=== PATIENT | male | born 1995 | race American Indian/Alaskan Native ===

== ENCOUNTER 2021-10-12 07:29 | Emergency (ER) | payer SELFPAY ==
[2021-10-12 07:49] VITALS: BP 147/94
--- NOTE | 2021-10-12 08:28 | Emergency Department Report ---
ED ENT HPI - General Chief complaint: Dental/Oral Stated complaint: WISDOM TOOTH INFECTED Time Seen by Provider: 10/12/21 08:00 Source: patient Mode of arrival: Ambulatory Limitations: No Limitations - History of Present Illness Initial comments: 26 year old male presents to ED with complaints of pain and swelling to wisdom tooth in most posterior aspect of right lower jaw. Onset was 2 days ago. He reports that he has known bad tooth to that area but currently does not have a dentist. He states in past 2 days, it has become painful and swollen. He reports no difficulty opening his mouth, drooling, difficulty breathing or difficulty swallowing or any facial redness. MD complaint: tooth pain -: Gradual, days(s) (2) - Related Data Previous Rx's Medication Instructions Recorded Last Taken Type Ibuprofen [Motrin 800 MG tab] 800 mg PO Q8HR PRN #15 tablet 07/12/20 Unknown Rx methOCARBAMOL [Robaxin TAB] 750 - 1,500 mg PO Q8H PRN #20 07/12/20 Unknown Rx tablet Amoxicillin [Trimox CAP] 500 mg PO Q8H #30 capsule 10/12/21 Unknown Rx Ketorolac [Toradol] 10 mg PO Q6H PRN #20 tablet 10/12/21 Unknown Rx Allergies Allergy/AdvReac Type Severity Reaction Status Date / Time No Known Allergies Allergy Unverified 07/12/20 12:22 ED Dental HPI - General Chief complaint: Dental/Oral Stated complaint: WISDOM TOOTH INFECTED Time Seen by Provider: 10/12/21 08:00 Source: patient Mode of arrival: Ambulatory Limitations: No Limitations - Related Data Previous Rx's Medication Instructions Recorded Last Taken Type Ibuprofen [Motrin 800 MG tab] 800 mg PO Q8HR PRN #15 tablet 07/12/20 Unknown Rx methOCARBAMOL [Robaxin TAB] 750 - 1,500 mg PO Q8H PRN #20 07/12/20 Unknown Rx tablet Amoxicillin [Trimox CAP] 500 mg PO Q8H #30 capsule 10/12/21 Unknown Rx Ketorolac [Toradol] 10 mg PO Q6H PRN #20 tablet 10/12/21 Unknown Rx Allergies Allergy/AdvReac Type Severity Reaction Status Date / Time No Known Allergies Allergy Unverified 07/12/20 12:22 ED Review of Systems ROS: Stated complaint: WISDOM TOOTH INFECTED Other details as noted in HPI Comment: All other systems reviewed and negative Constitutional: denies: chills, fever ENT: dental pain. denies: ear pain, throat pain, congestion Respiratory: denies: cough, shortness of breath, SOB with exertion, SOB at rest, wheezing Cardiovascular: denies: chest pain, palpitations, dyspnea on exertion, edema, syncope, paroxysmal nocturnal dyspnea Gastrointestinal: denies: abdominal pain, nausea, diarrhea, constipation, hematemesis, hematochezia Genitourinary: denies: urgency, dysuria, frequency, hematuria, discharge, testicular pain, testicular mass Musculoskeletal: denies: back pain, joint swelling, arthralgia Skin: denies: rash, lesions, change in color, change in hair/nails, pruritus Neurological: denies: headache, weakness, numbness, paresthesias, confusion, abnormal gait, vertigo Psychiatric: denies: anxiety, depression, auditory hallucinations, visual hallucinations, homicidal thoughts, suicidal thoughts Hematological/Lymphatic: denies: easy bleeding, easy bruising, swollen glands ED Past Medical Hx - Past Medical History Previous Medical History?: No - Surgical History Past Surgical History?: No - Social History Smoking Status: Never Smoker - Medications Home Medications: Home Medications Medication Instructions Recorded Confirmed Last Taken Type Ibuprofen [Motrin 800 MG tab] 800 mg PO Q8HR PRN #15 tablet 07/12/20 Unknown Rx methOCARBAMOL [Robaxin TAB] 750 - 1,500 mg PO Q8H PRN #20 07/12/20 Unknown Rx tablet Amoxicillin [Trimox CAP] 500 mg PO Q8H #30 capsule 10/12/21 Unknown Rx Ketorolac [Toradol] 10 mg PO Q6H PRN #20 tablet 10/12/21 Unknown Rx ED Physical Exam - General Limitations: No Limitations General appearance: alert, in no apparent distress - Head Head exam: Present: atraumatic, normocephalic, normal inspection - Eye Eye exam: Present: normal appearance, PERRL, EOMI Pupils: Present: normal accommodation - ENT ENT exam: Present: normal exam, mucous membranes moist, TM's normal bilaterally - Expanded ENT Exam Expanded 1 - Dental Tenderness (severe), Other (severe decay with impaction) Throat exam: Positive: normal inspection, tonsillar exudate - Neck Neck exam: Present: normal inspection, full ROM, lymphadenopathy (anterior cervical adenopathy ). Absent: tenderness, meningismus - Respiratory Respiratory exam: Present: normal lung sounds bilaterally. Absent: respiratory distress, wheezes, rales, rhonchi - Cardiovascular Cardiovascular Exam: Present: regular rate, normal rhythm, normal heart sounds - Neurological Exam Neurological exam: Present: alert, oriented X3, CN II-XII intact, normal gait - Psychiatric Psychiatric exam: Present: normal affect, normal mood - Skin Skin exam: Present: intact ED Course Vital Signs 10/12/21 07:46 Temperature 98.8 F Pulse Rate 69 Blood Pressure 147/94 Critical care attestation.: If time is entered above; I have spent that time in minutes in the direct care of this critically ill patient, excluding procedure time. ED Disposition Clinical Impression: Dental impaction, Pain due to dental caries Disposition: HOME / SELF CARE / HOMELESS Is pt being admited?: No Does the pt Need Aspirin: No Condition: Stable Instructions: Impacted Molar Additional Instructions: Take the amoxicillin and the Toradol as prescribed to help with pain. Continue to do the warm salt water rinses. Follow-up with a dentist, listed on the dental list given to you at discharge. Return to the ER if any symptoms worsens or changes in any way. Prescriptions: Ketorolac [Toradol] 10 mg PO Q6H PRN #20 tablet PRN Reason: Pain Amoxicillin [Trimox CAP] 500 mg PO Q8H #30 capsule Referrals: PRIMARY CARE, [Primary Care Provider] - 3-5 Days Forms: Work/School Release Form(ED) Time of Disposition: 08:28
== END 2021-10-12 08:59 | disposition home or self-care (01) ==
LOC: ED 07:29
DX: K01.1 Impacted teeth (principal); K02.9 Dental caries, unspecified
CPT/HCPCS: 99282

== ENCOUNTER 2022-05-25 10:32 | Emergency (ER) | payer SELFPAY ==
[2022-05-25] MEDS ORDERED: IBUPROFEN 600 MG TAB PO ONE (12:21)
[2022-05-25] MEDS ORDERED: HYDROcodone/ACETAMINOPHEN 5-325 MG TAB PO ONE (12:21)
--- NOTE | 2022-05-25 12:24 | Emergency Department Report ---
ED Extremity Problem HPI - General Chief complaint: Extremity Injury, Lower Stated complaint: SPRAIN ANKLE Time Seen by Provider: 05/25/22 11:32 Source: patient Mode of arrival: Ambulatory Limitations: No Limitations - History of Present Illness Initial comments: 18-year-old male with no significant past medical history reports to the ER with right ankle and right foot injury after playing basketball about 2 days ago. Patient reports pain is 8 out of 10 with ambulation. Patient reports swelling and tenderness. Patient Reports taking nothing for his pain. Patient reports no other acute signs and symptoms at this moment. Patient in no acute distress at this time. - Related Data Previous Rx's Medication Instructions Recorded Last Taken Type Ibuprofen [Motrin 800 MG tab] 800 mg PO Q8HR PRN #15 tablet 07/12/20 Unknown Rx methOCARBAMOL [Robaxin TAB] 750 - 1,500 mg PO Q8H PRN #20 07/12/20 Unknown Rx tablet Amoxicillin [Trimox CAP] 500 mg PO Q8H #30 capsule 10/12/21 Unknown Rx Ketorolac [Toradol] 10 mg PO Q6H PRN #20 tablet 10/12/21 Unknown Rx Ibuprofen [Motrin] 600 mg PO Q8H PRN 7 Days #21 tablet 05/25/22 Unknown Rx Allergies Allergy/AdvReac Type Severity Reaction Status Date / Time No Known Allergies Allergy Verified 05/25/22 11:10 ED Review of Systems ROS: Stated complaint: SPRAIN ANKLE Other details as noted in HPI ED Past Medical Hx - Social History Smoking Status: Never Smoker - Medications Home Medications: Home Medications Medication Instructions Recorded Confirmed Last Taken Type Ibuprofen [Motrin 800 MG tab] 800 mg PO Q8HR PRN #15 tablet 07/12/20 Unknown Rx methOCARBAMOL [Robaxin TAB] 750 - 1,500 mg PO Q8H PRN #20 07/12/20 Unknown Rx tablet Amoxicillin [Trimox CAP] 500 mg PO Q8H #30 capsule 10/12/21 Unknown Rx Ketorolac [Toradol] 10 mg PO Q6H PRN #20 tablet 10/12/21 Unknown Rx Ibuprofen [Motrin] 600 mg PO Q8H PRN 7 Days #21 tablet 05/25/22 Unknown Rx ED Physical Exam - General Limitations: No Limitations ED Course Vital Signs 05/25/22 05/25/22 11:07 14:19 Temperature 98.5 F 97.5 F L Pulse Rate 69 67 Respiratory 18 16 Rate Blood Pressure 141/78 137/86 [Left] O2 Sat by Pulse 98 100 Oximetry ED Medical Decision Making - Radiology Data Radiology results: report reviewed, image reviewed [address] [address] XRay Report Signed Patient: LUCIUS MCLEAN MR#: [id number] : 1995 Acct:[id number] Age/Sex: 26 / M ADM Date: 05/25/22 Loc: ED Attending Dr: Ordering Physician: BAN RODRIGUEZ NP Date of Service: 05/25/22 Procedure(s): XR ankle 3+V RT Accession Number(s): [id number] cc: BAN RODRIGUEZ NP Fluoro Time In Minutes: RIGHT ANKLE 3 VIEWS INDICATION / CLINICAL INFORMATION: ankle injury. COMPARISON: None available. FINDINGS: BONES / JOINT(S): No acute fracture or subluxation. No significant arthritis. SOFT TISSUES: Mild diffuse soft tissue swelling. ADDITIONAL FINDINGS: None. Signer Name: Jonathna Gaytan MD Signed: 05/25/2022 1:01 PM Workstation Name: [id number] Transcribed By: ES Dictated By: Jonathan Gaytan MD Electronically Authenticated By: Jonathan Gaytan MD Signed Date/Time: 05/25/22 130 DD/ 130 TD/TT: [address] [address] XRay Report Signed Patient: LUCIUS MCLEAN MR#: [id number] : 1995 Acct:[id number] Age/Sex: 26 / M ADM Date: 05/25/22 Loc: ED Attending Dr: Ordering Physician: BAN RODRIGUEZ NP Date of Service: 05/25/22 Procedure(s): XR foot 3+V RT Accession Number(s): [id number] cc: BAN RODRIGUEZ NP Fluoro Time In Minutes: RIGHT FOOT 3 VIEWS INDICATION / CLINICAL INFORMATION: foot injury. COMPARISON: None available. FINDINGS: BONES / JOINT(S): No acute fracture or subluxation. Moderate-sized bunion first metatarsal head medially. 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 SOFT TISSUES: No significant abnormality. ADDITIONAL FINDINGS: None. Signer Name: Jonathan Gaytan MD Signed: 05/25/2022 1:03 PM Workstation Name: [id number] Transcribed By: CHINO Dictated By: Jonathan Gaytan MD Electronically Authenticated By: Jonathan Gaytan MD Signed Date/Time: 05/25/22 1303 DD/ 1302 TD/TT: - Medical Decision Making 26-year-old male playing basketball 2 days ago injured his right foot and right ankle. Patient reports pain with ambulation. Patient reports taking no medications for his symptoms. On physical exam there is swelling and tenderness on the right foot dorsal side as well as the right ankle near the lateral malleolus. No deformity is noted. No lacerations or wound no ecchymosis noted. X-ray shows no acute fractures or dislocations in and foot or ankle. Patient to be given Deondre wrap to wrap his foot and ankle. Patient to be sent home with oral NSAIDs for pain discomfort. Patient is stable for discharge. Patient has been updated on his imaging results. Patient agrees with plan of care and verbalizes understanding. Patient educated that if his symptoms are to get worse to report back to the ER. Vital Signs 05/25/22 05/25/22 11:07 14:19 Temperature 98.5 F 97.5 F L Pulse Rate 69 67 Respiratory 18 16 Rate Blood Pressure 141/78 137/86 [Left] O2 Sat by Pulse 98 100 Oximetry Critical care attestation.: If time is entered above; I have spent that time in minutes in the direct care of this critically ill patient, excluding procedure time. ED Disposition Clinical Impression: Ankle sprain Qualifiers: Encounter type: initial encounter Involved ligament of ankle: other ligament Laterality: right Qualified Code(s): S93.491A - Sprain of other ligament of right ankle, initial encounter Foot sprain Qualifiers: Encounter type: initial encounter Laterality: right Qualified Code(s): S93.601A - Unspecified sprain of right foot, initial encounter Disposition: HOME / SELF CARE / HOMELESS Is pt being admited?: No Condition: Stable Instructions: Ankle Sprain, Foot Sprain, Elastic Bandage and RICE Therapy Prescriptions: Ibuprofen [Motrin] 600 mg PO Q8H PRN 7 Days #21 tablet PRN Reason: Pain Referrals: LE LONGO MD [Primary Care Provider] - 3-5 Days Forms: Work/School Release Form(ED)
--- NOTE | 2022-05-25 13:06 | XRay Report ---
RIGHT ANKLE 3 VIEWS INDICATION / CLINICAL INFORMATION: ankle injury. COMPARISON: None available. FINDINGS: BONES / JOINT(S): No acute fracture or subluxation. No significant arthritis. SOFT TISSUES: Mild diffuse soft tissue swelling. ADDITIONAL FINDINGS: None. Signer Name: Jonathan Gaytan MD Signed: 05/25/2022 1:01 PM Workstation Name: [id number]
--- NOTE | 2022-05-25 13:07 | XRay Report ---
RIGHT FOOT 3 VIEWS INDICATION / CLINICAL INFORMATION: foot injury. COMPARISON: None available. FINDINGS: BONES / JOINT(S): No acute fracture or subluxation. Moderate-sized bunion first metatarsal head media lly. 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 SOFT TISSUES: No significant abnormality. ADDITIONAL FINDINGS: None. Signer Name: Jonathan Gaytan MD Signed: 05/25/2022 1:03 PM Workstation Name: [id number]
[2022-05-25 14:20] VITALS: BP 137/86
== END 2022-05-25 14:20 | disposition home or self-care (01) ==
LOC: ED 10:32
DX: S93.401A Sprain of unspecified ligament of right ankle, initial encounter (principal); S93.601A Unspecified sprain of right foot, initial encounter; X58.XXXA Exposure to other specified factors, initial encounter; Y93.89 Activity, other specified; Y92.89 Other specified places as the place of occurrence of the external cause; Y99.8 Other external cause status
CPT/HCPCS: 99283